=== PATIENT | male | born 1990 | race Caucasian/White ===

== ENCOUNTER 2020-12-05 08:31 | Emergency (ER) | payer SELFPAY ==
[~2020-12-05] VITALS: Ht 195.6 cm; Wt 171.9 kg
[2020-12-05] MEDS ORDERED: DEXAMETHASONE SOD PHOS 10 MG/ML VIAL. IV ONE (08:45)
[2020-12-05] MEDS ORDERED: IV NORMAL SALINE 1,000ML 1,000 ML IV ONE ×2 (08:45→12:00)
[2020-12-05] MEDS ORDERED: CLINDAMYCIN 600MG PREMIX 50 ML IV ONE (08:45)
--- NOTE | 2020-12-05 08:48 | PHYS DOC ---
Past History Past Medical History: No Pertinent History Adult General HPI HPI Patient is a 28-year-old male presenting for dysphagia. Reports feelings of sore throat starting 3 days prior without any known inciting event, trauma, or any obvious exposure. Nothing known makes better, patient reports warts worsening inability to swallow. Patient describes pain as focal and sharp, has been able to tolerate secretions but reports phonation changes and a muffled voice. Timing of symptoms has been constant since onset and worsening. Patient presented to his primary care office this morning for evaluation and appeared to be tachycardic, sweating and ill-appearing so he was referred to our ER for further evaluation and work-up. Patient denies any known medical issues, does not take any meds on a daily basis, reports he received all necessary childhood vaccinations and is currently vaccinated against COVID-19. No fever or sick contacts, no recent travel. He has never had anything like this before. Besides pain and difficulty swallowing, no chest pain, shortness of breath, abdominal pain, changes in motor or sensory or neuro function Review of Systems Review of Systems Fourteen body systems of review of systems have been reviewed. See HPI for pertinent positives and negative responses, other viveros all other systems are negative, non-pertinent or non-contributory Physical Exam Physical Exam Constitutional: Diaphoretic and ill-appearing HENT: Normocephalic, atraumatic, bilateral external ears normal, oropharynx moist, no oral exudates, nose normal. Patient's Mallampati score class III, bilateral engorged tonsils present without any gross abnormalities or infection but airway is narrowed as a result of size, tolerating secretions, patient does appear to have a muffled voice Eyes: PERRLA, EOMI, conjunctiva normal, no discharge. Neck: Normal range of motion, no tenderness, supple, no stridor. No meningeal signs Cardiovascular: Heart rate tachycardic, sinus rhythm, no murmurs rubs or gallops Lungs & Thorax: Increased work of breathing with accessory muscle use noted in the neck, slight tachypnea, airway is patent but there are phonation changes, patient tolerating secretions, clear to auscultation bilaterally Abdomen: Bowel sounds normal, soft, no tenderness, no masses, no pulsatile masses. Nonsurgical abdomen, no peritoneal signs Skin: Warm, dry, no erythema, no rash. Diaphoretic Back: No tenderness, no CVA tenderness. Extremities: No tenderness, no cyanosis, no clubbing, ROM intact, no edema. Neurologic: Alert and oriented X 3, grossly normal motor & sensory function, no focal deficits noted. Psychologic: Anxious affect and mood Current Patient Data Vital Signs Vital Signs Date Time Temp Pulse Resp B/P (MAP) Pulse Ox O2 Delivery O2 Flow Rate FiO2 12/05/20 08:31 93 24 149/100 (116) 97 Room Air Vital Signs Date Time Temp Pulse Resp B/P (MAP) Pulse Ox O2 Delivery O2 Flow Rate FiO2 12/05/20 08:31 93 24 149/100 (116) 97 Room Air Lab Results Laboratory Tests Test 12/05/20 09:04 12/05/20 11:05 White Blood Count 19.4 x10^3/uL Red Blood Count 5.30 x10^6/uL Hemoglobin 14.3 g/dL Hematocrit 42.7 % Mean Corpuscular Volume 81 fL Mean Corpuscular Hemoglobin 27 pg Mean Corpuscular Hemoglobin Concent 34 g/dL Red Cell Distribution Width 14.9 % Platelet Count 284 x10^3/uL Neutrophils (%) (Auto) 78 % Lymphocytes (%) (Auto) 14 % Monocytes (%) (Auto) 6 % Eosinophils (%) (Auto) 1 % Basophils (%) (Auto) 1 % Neutrophils # (Auto) 15.2 x10^3uL Lymphocytes # (Auto) 2.8 x10^3/uL Monocytes # (Auto) 1.2 x10^3/uL Eosinophils # (Auto) 0.1 x10^3/uL Basophils # (Auto) 0.1 x10^3/uL Segmented Neutrophils % 80 % Lymphocytes % 12 % Atypical Lymphocytes % (Manual) 1 % Monocytes % 7 % Platelet Estimate Adequate Sodium Level 142 mmol/L Potassium Level 3.7 mmol/L Chloride Level 103 mmol/L Carbon Dioxide Level 28 mmol/L Anion Gap 11 Blood Urea Nitrogen 13 mg/dL Creatinine 1.1 mg/dL Estimated GFR (Cockcroft-Gault) 79.1 BUN/Creatinine Ratio 12 Glucose Level 118 mg/dL Lactic Acid Level 1.1 mmol/L Calcium Level 8.9 mg/dL Total Bilirubin 2.5 mg/dL Aspartate Amino Transf (AST/SGOT) 61 U/L Alanine Aminotransferase (ALT/SGPT) 111 U/L Alkaline Phosphatase 110 U/L Troponin I Quantitative < 0.017 ng/mL Total Protein 7.8 g/dL Albumin 3.8 g/dL Albumin/Globulin Ratio 1.0 Group A Streptococcus Rapid Negative SARS-CoV-2 Antigen (Rapid) Negative Current Medications Medications (Trade) Dose Ordered Sig/Andriy Route PRN Reason Start Time Stop Time Status Last Admin Dose Admin Sodium Chloride 1,000 ml @ 1,000 mls/hr 1X ONCE IV 12/05/20 08:45 12/05/20 09:44 DC 12/05/20 09:16 Dexamethasone Sodium Phosphate (Decadron) 10 mg 1X ONCE IV 12/05/20 08:45 12/05/20 08:59 DC 12/05/20 09:18 Ceftriaxone Sodium 2 gm/ Sodium Chloride 100 ml @ 200 mls/hr 1X ONCE IV 12/05/20 08:45 12/05/20 09:14 DC 12/05/20 09:19 Clindamycin Phosphate 50 ml @ 100 mls/hr 1X ONCE IV 12/05/20 08:45 12/05/20 09:14 DC 12/05/20 09:18 Ondansetron HCl (Zofran) 4 mg STK-MED ONCE .ROUTE 12/05/20 08:51 12/05/20 08:52 DC Iohexol (Omnipaque 300 Mg/ml) 75 ml 1X ONCE IV 12/05/20 09:00 12/05/20 09:01 DC Ondansetron HCl (Zofran) 4 mg 1X ONCE IVP 12/05/20 09:15 12/05/20 09:16 DC 12/05/20 09:17 Ketorolac Tromethamine (Toradol 30mg Vial) 30 mg 1X ONCE IVP 12/05/20 09:15 12/05/20 09:16 DC 12/05/20 09:17 Ceftriaxone Sodium (Rocephin) 2 gm STK-MED ONCE IV 12/05/20 09:13 12/05/20 09:13 DC Ketorolac Tromethamine (Toradol 30mg Vial) 30 mg STK-MED ONCE .ROUTE 12/05/20 09:13 12/05/20 09:13 DC Sodium Chloride 100 ml @ As Directed STK-MED ONCE .ROUTE 12/05/20 09:13 12/05/20 09:13 DC EKG EKG EKG ordered and interpreted by myself at 0847 hrs. as sinus tachycardia at 105 bpm, unremarkable intervals, no axis deviation, no obvious ischemic findings, no STEMI Prior EKG obtained at PCPs office at 0807 hrs. interpreted by myself as sinus tachycardia at 102 bpm, unremarkable intervals, no axis deviation, no STEMI Radiology/Procedures Radiology/Procedures EXAM: CHEST 1 VIEW History: Shortness of breath COMPARISON: None available. TECHNIQUE: Single portable radiograph of the chest FINDINGS: The cardiac silhouette is unremarkable. Mild bibasilar lung atelectasis or infiltrates. The costophrenic sulci are clear and well demarcated. IMPRESSION: Mild bibasilar lung atelectasis or infiltrates. Electronically signed by: Wallace Cruz MD (12/05/2020 9:43 AM) [email or web address] ////////////////////////////////// Examination: CT Soft tissue neck with IV contrast HISTORY: History of enlarged tonsils, shortness of breath COMPARISON: None available TECHNIQUE: Axial CT images of the soft tissue neck were performed with IV contrast. Coronal and sagittal reformats are performed Exposure: One or more of the following individualized dose reduction techniques were utilized for this examination: 1. Automated exposure control 2. Adjustment of the mA and/or kV according to patient size 3. Use of iterative reconstruction technique FINDINGS: The visualized intracranial portion grossly appears unremarkable. The bilateral parotid glands, masticators spaces, parapharyngeal spaces grossly appears unremarkable. There is moderate to severely enlarged appearance of the bilateral tonsils causing significant airway narrowing at the tonsillar level. No evidence of peritonsillar abscess. Multiple bilateral enlarged lymph nodes identified in the cervical region with the largest measuring 2.5 cm on the right. The visualized thyroid gland grossly appears unremarkable. The apical lungs are clear. IMPRESSION: 1. Moderate to severely enlarged appearance of the bilateral tonsils causing si gnificant airway narrowing at the tonsillar level likely tonsillitis. No evidence of peritonsillar abscess. 2. Multiple bilateral enlarged lymph nodes identified in the cervical region with the largest measuring 2.5 cm on the right, likely reactive lymphadenopathy. Electronically signed by: Wallace Cruz MD (12/05/2020 10:20 AM) [email or web address] Heart Score C/O Chest Pain: No HEART Score for Chest Pain: HEART Score for Chest Pain Response (Comments) Value History Slighlty/Non-Suspicious 0 ECG Nonspecific Repolarizatio 1 Age < 45 0 Risk Factors 1 or 2 Risk Factors 1 Troponin < Normal Limit 0 Total 2 Risk Factors: Risk Factors: DM, Current or recent (<one month) smoker, HTN, HLP, family history of CAD, obesity. Risk Scores: Risk Factors: DM, Current or recent (<one month) smoker, HTN, HLP, family history of CAD, obesity. Course & Med Decision Making Course & Med Decision Making Patient's airway guarded but patent, breathing labored, IV access and vitals obtained concerning for tachycardia and tachypnea HPI somewhat limited due to patient speaking in few word sentences only. Physical examination concerning for compromised yet patent airway. Comprehensive examination concerning for tonsillitis 10 mg IV Decadron, 2 g Rocephin, 600 mg clindamycin administered with improvement in patient's symptoms. Patient's airway remained patent and phonation changes improved but still high risk for discharge home I contacted patient's primary care physician and reviewed case. We both feel he is unsafe for admission at [facility] and would benefit from transfer to [facility] for higher acuity of care and continued airway monitoring ENT services contacted. I was notified that they do not provide ER coverage nor at [facility] anymore. They agreed to current work-up and disclose that with cases such as this, tonsillitis, there is no need for inpatient ENT evaluation I contacted Dr. Alvarez at [facility] and notified him of ER work-up, patient presentation my discussion with ENT, he felt appropriate transferring patient under his care. They have a physician and anesthesia services onsite 31/10 which our facility does not Patient updated on proposed plan of care that included hospital transfer and was amenable. All questions and concerns addressed prior to ER transfer to [facility] for admission Critical Care Time This patient required critical care. Due to the fact that the patient required a significant amount of one on one physician - patient contact time, ordering and review of studies, arranging urgent treatment with development of a management plan, evaluation of patients response to treatment with frequent reassessments, and discussions with other providers this patient required 30 minutes of critical care time. Critical care time was indicated due to the inherent instability and/or potential for instability in this patient. The critical care time that is allocated to this patient is above and beyond any time spent on any other billable procedures performed on this patient. Dragon Disclaimer Dragon Disclaimer This electronic medical record was generated, in whole or in part, using a voice recognition dictation system. Departure Departure: Impression: Primary Impression: Tonsillitis Disposition: 02 [facility] ([facility]) Admitting Physician: Other (dr alvarez) Condition: STABLE Referrals: ANIKA BLUNT MD (PCP) KAYLEN QUINTANILLA DO Dec 05, 2020 08:48
[2020-12-05] MEDS ORDERED: ONDANSETRON PF 4 MG/2 ML VIAL. ONE (08:51)
[2020-12-05] MEDS ORDERED: IOHEXOL 300 MG/ML 75 ML VIAL. IV ONE (09:00)
[2020-12-05] MEDS ORDERED: KETOROLAC 30 MG/ML VIAL. ONE (09:13)
[2020-12-05] MEDS ORDERED: IV NORMAL SALINE 100ML 100 ML ONE (09:13)
[2020-12-05] MEDS ORDERED: KETOROLAC 30 MG/ML VIAL. IVP ONE (09:15)
[2020-12-05] MEDS ORDERED: ONDANSETRON PF 4 MG/2 ML VIAL. IVP ONE (09:15)
[2020-12-05 09:29] LABS: BASO # 0.1 x10^3/uL (0.0-0.2); BASO % 1 % (0-3); EOS # 0.1 x10^3/uL (0.0-0.7); EOS % 1 % (0-3); HEMATOCRIT 42.7 % (39.0-53.0); HEMOGLOBIN 14.3 g/dL (13.0-17.5); LYMPH # 2.8 x10^3/uL (1.0-4.8); LYMPH % 14 % (24-48); MEAN CORPUSCULAR HEMOGLOBIN 27 pg (25-35); MEAN CORPUSCULAR HGB CONC 34 g/dL (31-37); MEAN CORPUSCULAR VOLUME 81 fL (79-100); MONO # 1.2 x10^3/uL (0.0-1.1); MONO % 6 % (0-9); NEUT # 15.2 x10^3uL (1.8-7.7); NEUT % 78 % (31-73); PLATELET COUNT 284 x10^3/uL (140-400); RED CELL DISTRIBUTION WIDTH 14.9 % (11.5-14.5); WHITE BLOOD COUNT 19.4 x10^3/uL (4.0-11.0)
[2020-12-05 09:34] LABS: CALCIUM 8.9 mg/dL (8.5-10.1); CREATININE 1.1 mg/dL (0.7-1.3); GFR 79.1; POTASSIUM 3.7 mmol/L (3.5-5.1)
--- NOTE | 2020-12-05 09:45 | RAD ---
EXAM: CHEST 1 VIEW History: Shortness of breath COMPARISON: None available. TECHNIQUE: Single portable radiograph of the chest FINDINGS: The cardiac silhouette is unremarkable. Mild bibasilar lung atelectasis or infiltrates. Th e costophrenic sulci are clear and well demarcated. IMPRESSION: Mild bibasilar lung atelectasis or infiltrates. Electronically signed by: Wallace Cruz MD (12/05/2020 9:43 AM) [id number]
[2020-12-05 09:49] LABS: ALBUMIN 3.8 g/dL (3.4-5.0); TOTAL BILIRUBIN 2.5 mg/dL (0.2-1.0); TOTAL PROTEIN 7.8 g/dL (6.4-8.2)
--- NOTE | 2020-12-05 10:22 | RAD ---
Examination: CT Soft tissue neck with IV contrast HISTORY: History of enlarged tonsils, shortness of breath COMPARISON: None available TECHNIQUE: Axial CT images of the soft tissue neck were performed with IV contrast. Coronal and sagit suly reformats are performed Exposure: One or more of the following individualized dose reduction techniques were utilized for thi s examination: 1. Automated exposure control 2. Adjustment of the mA and/or kV according to patient size 3. Use of iterative reconstruction technique FINDINGS: The visualized intracranial portion grossly appears unremarkable. The bilateral parotid glands, masti cators spaces, parapharyngeal spaces grossly appears unremarkable. There is moderate to severely enla rged appearance of the bilateral tonsils causing significant airway narrowing at the tonsillar level. No evidence of peritonsillar abscess. Multiple bilateral enlarged lymph nodes identified in the cerv ical region with the largest measuring 2.5 cm on the right. The visualized thyroid gland grossly appe ars unremarkable. The apical lungs are clear. IMPRESSION: 1. Moderate to severely enlarged appearance of the bilateral tonsils causing significant airway narr owing at the tonsillar level likely tonsillitis. No evidence of peritonsillar abscess. 2. Multiple bilateral enlarged lymph nodes identified in the cervical region with the largest measur ing 2.5 cm on the right, likely reactive lymphadenopathy. Electronically signed by: Wallace Cruz MD (12/05/2020 10:20 AM) [place] [id number]
--- NOTE | 2020-12-05 10:23 | EKG ---
[address] [address] Test Date: 2020-12-05 Test Time: 08:42:21 Pat Name: SARAVANAN DE LOS SANTOS Department: Room: Gender: M Shot Blaster: CARLOS : 1990 Requested By: KAYLEN QUINTANILLA Order Number: [id number] Reading MD: Measurements Intervals [place] Rate: 105 P: 17 [place]: 166 QRS: 51 QRSD: 96 T: 26 QT: 334 QTc: 445 Interpretive Statements SINUS TACHYCARDIA S1,S2,S3 PATTERN OTHERWISE NORMAL ECG RI6.02 No previous ECG available for comparison
[2020-12-05 11:27] LABS: % ATYL 1 % (0-0); % LYMPHS 12 % (24-48); % MONOS 7 % (0-10); % SEGS 80 % (35-66)
[2020-12-05 11:28] LABS: PLT ESTIMATE ADEQUATE (ADEQUATE)
[2020-12-05 16:00] VITALS: BP 151/66
[2020-12-05] MEDS ORDERED: PENI500T PO (17:17)
== END 2020-12-05 17:30 | disposition home or self-care (01) ==
LOC: ER 08:31
DX: J03.90 Acute tonsillitis, unspecified (principal); Z20.822 Contact with and (suspected) exposure to COVID-19
CPT/HCPCS: 70491; 71045; 80053; 83605; 84484; 85007; 85025; 87040; 87070; 87147; 87426; 87880; 93005; 96365; 96366; 96368; 96375; 99285; C9803; J0696; J1100; J1885; J2405; J3490; J7030; U0003